=== PATIENT | male | born 1985 ===

== ENCOUNTER 2016-12-01 18:11 | Emergency (ER) | payer MEDICAID ==
[2016-12-01] MEDS ORDERED: Sodium Chloride 0.9% 1,000 ML IV STA (19:17)
--- NOTE | 2016-12-01 19:36 | ED PDOC ---
HPI: General Adult Time Seen by Provider: 12/01/16 19:05 Chief Complaint (Nursing): Medical Clearance Chief Complaint (Provider): Medical Clearance History Per: Patient History/Exam Limitations: no limitations Onset/Duration Of Symptoms: Hrs (1x hour prior to arrival) Current Symptoms Are (Timing): Still Present Severity: Moderate Additional Complaint(s): 31 year old male with a pertinent medical history of plaque psoriasis (on Humira ) presents to the ED for medical clearance. He reports that he does not usually drink daily, but for the past 3x days he has been on an alcohol binge drinking 9 keystone beers (large cans) per day (his last drink was 19x hours prior to arrival), and 1x hours prior to arrival he started having tremors in his hands. He denies having any chest pain, shortness of breath, palpitations, suicidal or homicidal ideation. Past Medical History Reviewed: Historical Data, Nursing Documentation, Vital Signs Vital Signs: Last Vital Signs Temp 98.4 F 12/01/16 18:26 Pulse 75 12/01/16 20:42 Resp 17 12/01/16 20:42 BP 128/76 12/01/16 20:42 Pulse Ox 100 12/01/16 20:53 - Medical History Other PMH: plaque psoriasis - Surgical History Surgical History: No Surg Hx - Family History Family History: States: Unknown Family Hx - Social History Alcohol: Occasional (drinking binge for the past 3x days) Drugs: Denies - Allergies Allergies/Adverse Reactions: Allergies Allergy/AdvReac Type Severity Reaction Status Date / Time No Known Allergies Allergy Verified 12/01/16 18:26 Review of Systems ROS Statement: Except As Marked, All Systems Reviewed And Found Negative Constitutional: Negative for: Fever Cardiovascular: Negative for: Chest Pain, Palpitations Respiratory: Negative for: Shortness of Breath Neurological: Positive for: Incoordination (tremors in hands) Psych: Negative for: Suicidal ideation (no homicidal ideations) Physical Exam - Reviewed Nursing Documentation Reviewed: Yes Vital Signs Reviewed: Yes - Physical Exam Appears: Positive for: Well, Non-toxic, No Acute Distress Head Exam: Positive for: ATRAUMATIC, NORMOCEPHALIC Skin: Positive for: Normal Color, Warm, Dry ENT: Positive for: Other (tongue fasciculations) Neck: Positive for: Normal Cardiovascular/Chest: Positive for: Regular Rate, Rhythm Respiratory: Positive for: Normal Breath Sounds. Negative for: Respiratory Distress Extremity: Positive for: Other (mild tremors in hands) Neurologic/Psych: Positive for: Alert, Oriented (3x) - Laboratory Results Result Diagrams: 12/01/16 19:00 12/01/16 19:00 - ECG O2 Sat by Pulse Oximetry: 100 (RA) Pulse Ox Interpretation: Normal Medical Decision Making Medical Decision Makin:05 Initial impression: 31 year old male in alcohol withdrawal Initial plan: * acetaminophen * alcohol serum * BMP * drug screen, urinary * salicylate * CBC * ativan 2mg IVP * IV NS 1,000ml IV 500mls/hr * urinalysis * reevlauation 20:52 Patient no longer has tremors in his hands and his vitals have improved. Patient will be discharged home. Return precautions are given. Scribe Attestation: Documented by Yelitza Coombs, acting as a scribe for Andrea Avina MD. Provider Scribe Attestation: All medical record entries made by the Scribe were at my direction and personally dictated by me. I have reviewed the chart and agree that the record accurately reflects my personal performance of the history, physical exam, medical decision making, and the department course for this patient. I have also personally directed, reviewed, and agree with the discharge instructions and disposition. Disposition - Clinical Impression Clinical Impression: Alcohol withdrawal - Disposition Referrals: Alcoholics Anonymous [Outside] Disposition: Routine/Home Disposition Time: 20:52 Condition: STABLE Instructions: Alcohol Withdrawal (DC)
[2016-12-01] MEDS ORDERED: diaZEpam 10 mg/2 ml Inj ONE (19:46)
[2016-12-01] MEDS ORDERED: diaZEpam 10 mg/2 ml Inj IVP ONE (19:47)
[2016-12-01 19:55] LABS: BASO % 0.4 % (0.0-2.0); EOS # 0.3 K/uL (0.0-0.7); EOS % 2.3 % (0.0-4.0); HEMATOCRIT 48.4 % (35.0-51.0); LYMPH # 2.6 K/uL (1.0-4.3); LYMPH % 23.8 % (20.0-40.0); MEAN CELL VOLUME 88.6 fl (80.0-94.0); MEAN CORPUSCULAR HEMOGLOBIN 29.6 pg (27.0-31.0); MEAN CORPUSCULAR HGB CONC 33.4 g/dL (33.0-37.0); MEAN PLATELET VOLUME 7.8 fl (7.2-11.7); MONO % 8.8 % (0.0-10.0); NEUT # 7.1 K/uL (1.8-7.0); NEUT % 64.7 % (50.0-75.0); RED CELL DISTRIBUTION WIDTH 13.6 % (11.5-14.5); WHITE BLOOD COUNT 10.9 K/uL (4.8-10.8)
[2016-12-01 19:58] LABS: ALCOHOL SERUM < 10 mg/dl (0-10); BLOOD UREA NITROGEN 9 mg/dl (9-20); CALCIUM 9.1 mg/dL (8.4-10.2); CARBON DIOXIDE 23 mmol/L (22-30); CHLORIDE 99 mmol/L (98-107); GFR AFRICAN-AMERICAN > 60; GLUCOSE,RANDOM 89 mg/dL (75-110); POTASSIUM 3.6 MMOL/L (3.6-5.0); SODIUM 138 mmol/l (132-148)
[2016-12-01 20:43] VITALS: RESP 17
[2016-12-01 21:58] VITALS: BP 134/90; PULSE 81; TEMP 98.1; O2SAT 99
[2016-12-02 13:36] LABS: RBC URINE 2 /hpf (0-3); URINE BILIRUBIN NEGATIVE (NEGATIVE); URINE BLOOD NEGATIVE (NEGATIVE); URINE COLOR YELLOW (YELLOW); URINE GLUCOSE (UA) NEG (Normal); URINE KETONE 20 mg/dL (NEGATIVE); URINE LEUKOCYTE ESTERASE NEG Leu/uL (Negative); URINE PROTEIN 30 mg/dL (NEGATIVE); URINE UROBILINOGEN 0.2-1.0 mg/dL (0.2-1.0)
== END 2016-12-01 21:56 | disposition home or self-care (01) ==
LOC: H.ER 18:11
DX: F10.239 Alcohol dependence with withdrawal, unspecified (principal); L40.9 Psoriasis, unspecified

== ENCOUNTER 2018-02-01 19:50 | Emergency (ER) | payer MEDICAID ==
--- NOTE | 2018-02-01 22:44 | ED PDOC ---
HPI: General Adult Time Seen by Provider: 02/01/18 22:26 Chief Complaint (Nursing): Alcohol Ingestion Chief Complaint (Provider): alcohol withdrawal History Per: Patient History/Exam Limitations: no limitations Onset/Duration Of Symptoms: Hrs Current Symptoms Are (Timing): Still Present Additional Complaint(s): 32 y/o male presents for evaluation of possible alcohol withdrawals. Patient states he has been binge drinking for the last 4 days, his last drink as was 13: 00 today. Patient reports feeling shaky and anxious. Denies fever, headache, dizziness, nausea/vomiting, chest pain, shortness of breath, changes in bowel movements, urinary symptoms, drug use. Past Medical History Reviewed: Historical Data, Nursing Documentation, Vital Signs Vital Signs: Last Vital Signs Temp 98.6 F 02/02/18 00:51 Pulse 90 02/02/18 00:51 Resp 20 02/02/18 00:51 BP 141/71 02/02/18 00:51 Pulse Ox 98 02/02/18 00:51 - Medical History PMH: No Chronic Diseases - Surgical History Surgical History: No Surg Hx - Family History Family History: States: Unknown Family Hx - Allergies Allergies/Adverse Reactions: Allergies Allergy/AdvReac Type Severity Reaction Status Date / Time No Known Allergies Allergy Verified 12/01/16 18:26 Review of Systems ROS Statement: Except As Marked, All Systems Reviewed And Found Negative Psych: Positive for: Anxiety Physical Exam - Reviewed Nursing Documentation Reviewed: Yes Vital Signs Reviewed: Yes - Physical Exam Appears: Positive for: Well, Non-toxic, Uncomfortable (anxious) Head Exam: Positive for: ATRAUMATIC, NORMAL INSPECTION, NORMOCEPHALIC Skin: Positive for: Normal Color Eye Exam: Positive for: Normal appearance ENT: Positive for: Normal ENT Inspection Cardiovascular/Chest: Positive for: Regular Rate, Rhythm Respiratory: Positive for: Normal Breath Sounds Gastrointestinal/Abdominal: Positive for: Normal Exam Back: Positive for: Normal Inspection Extremity: Positive for: Normal ROM Neurologic/Psych: Positive for: Alert, Oriented (x3) - Laboratory Results Result Diagrams: 02/01/18 23:30 02/01/18 23:30 - ECG ECG: Positive for: Viewed By Me (reviewed by ED attending) ECG Rhythm: Positive for: Sinus Rhythm O2 Sat by Pulse Oximetry: 97 - Progress ED Course And Treament: labs, ekg, IV fluids, IV ativan On re-eval, patient sleeping; upon awaking states he is feeling better Vitals improved Patient educated on findings, discharged with instructions to follow up PMD 2-3 days Information for local detox centers given Return precautions given Disposition - Clinical Impression Clinical Impression: Alcohol withdrawal, Polysubstance abuse - Patient ED Disposition Is Patient to be Admitted: No Counseled Patient/Family Regarding: Studies Performed, Diagnosis, Need For Followup - Disposition Disposition: Routine/Home Disposition Time: 01:26 Condition: STABLE Instructions: Alcohol Withdrawal, Polysubstance Abuse
[2018-02-01 23:37] LABS: BASO # 0.1 K/uL (0.0-0.2); EOS # 0.2 K/uL (0.0-0.7); EOS % 2.4 % (0.0-4.0); HEMOGLOBIN 16.3 g/dL (12.0-18.0); LYMPH # 1.8 K/uL (1.0-4.3); LYMPH % 27.7 % (20.0-40.0); MEAN CELL VOLUME 92.7 fl (80.0-94.0); MEAN CORPUSCULAR HEMOGLOBIN 32.2 pg (27.0-31.0); MEAN CORPUSCULAR HGB CONC 34.7 g/dL (33.0-37.0); MONO # 0.7 K/uL (0.0-0.8); MONO % 10.7 % (0.0-10.0); NEUT # 3.8 K/uL (1.8-7.0); NEUT % 58.2 % (50.0-75.0); RBC 5.07 Mil/uL (4.40-5.90); RED CELL DISTRIBUTION WIDTH 14.1 % (11.5-14.5); WHITE BLOOD COUNT 6.6 K/uL (4.8-10.8)
[2018-02-01 23:46] LABS: URINE BILIRUBIN NEGATIVE (NEGATIVE); URINE BLOOD NEGATIVE (NEGATIVE); URINE CLARITY CLEAR (Clear); URINE COLOR STRAW (YELLOW); URINE GLUCOSE (UA) NEG (Normal); URINE LEUKOCYTE ESTERASE NEG Leu/uL (Negative); URINE PROTEIN NEGATIVE (NEGATIVE); URINE UROBILINOGEN 0.2-1.0 mg/dL (0.2-1.0)
[2018-02-01 23:54] LABS: BARBITURATES, UR NEGATIVE (NEGATIVE); BENZODIAZEPINES, UR NEGATIVE (NEGATIVE); OPIATES, UR NEGATIVE (NEGATIVE); PHENCYCLIDINE, UR NEGATIVE (NEGATIVE)
[2018-02-01] MEDS: Sodium Chloride 0.9% 1,000 ML IV STA (23:54)
[2018-02-02] LABS: ALB/GLOB RATIO 1.2 (1.0-2.1); ALBUMIN 4.4 g/dL (3.5-5.0); ALT/SGPT 285 U/L (21-72); AST/SGOT 300 U/L (17-59); BLOOD UREA NITROGEN 3 mg/dl (9-20); CALCIUM 8.5 mg/dL (8.4-10.2); GFR AFRICAN-AMERICAN > 60; GFR NON-AFRICAN AMERICAN > 60
[2018-02-02 01:28] VITALS: O2SAT 97
[2018-02-02 01:36] VITALS: BP 131/83; PULSE 87; RESP 16
[2018-02-02 02:01] VITALS: TEMP 98.4
--- NOTE | 2018-02-02 07:14 | CARD ---
APPROVED REPORT Date of service: 02/01/2018 <Conclusion> Normal sinus rhythm Normal ECG
== END 2018-02-02 01:59 | disposition home or self-care (01) ==
LOC: H.ER 19:50
DX: F10.239 Alcohol dependence with withdrawal, unspecified (principal); F19.10 Other psychoactive substance abuse, uncomplicated
CPT/HCPCS: 80053; 80320; 80324; 80345; 80346; 80349; 80353; 80358; 80361; 81003; 83992; 85025; 93005; 96374; 99283; J2060; J7030